=== PATIENT | male | born 1990 | race Caucasian/White ===

== ENCOUNTER 2017-06-02 14:58 | Emergency (ER) | payer SELFPAY ==
[~2017-06-02] VITALS: Ht 177.8 cm; Wt 67.4 kg
[2017-06-02] MEDS ORDERED: INDOCIN50 MG PO (15:48)
[2017-06-02 15:59] VITALS: BP 151/95
== END 2017-06-02 16:00 | disposition home or self-care (01) ==
LOC: EME 14:58
DX: S46.911A Strain of unspecified muscle, fascia and tendon at shoulder and upper arm level, right arm, initial encounter (principal); X50.0XXA Overexertion from strenuous movement or load, initial encounter; Y93.89 Activity, other specified
CPT/HCPCS: 99281; 99283